=== PATIENT | female | born 1990 | race Caucasian/White ===

== ENCOUNTER 2017-04-09 14:31 | Emergency (ER) | payer MEDICAID ==
[~2017-04-09] VITALS: Ht 160 cm; Wt 65.8 kg
[2017-04-10] MEDS ORDERED: OMEPRAZOLE20 MG PO (23:31)
== END 2017-04-09 17:17 | disposition home or self-care (01) ==
LOC: ED 14:31
DX: T42.4X1A Poisoning by benzodiazepines, accidental (unintentional), initial encounter (principal)
CPT/HCPCS: 80053; 80176; 81001; 84443; 85025; 99283; G0480

== ENCOUNTER 2017-04-10 17:12 | Emergency (ER) | payer MEDICAID ==
[~2017-04-10] VITALS: Ht 160 cm; Wt 65.8 kg
[2017-04-10] MEDS ORDERED: OMEPRAZOLE20 MG PO (23:31)
== END 2017-04-11 05:42 | disposition home or self-care (01) ==
LOC: ED 17:12
DX: F10.239 Alcohol dependence with withdrawal, unspecified (principal); F17.200 Nicotine dependence, unspecified, uncomplicated; Y90.1 Blood alcohol level of 20-39 mg/100 ml
CPT/HCPCS: 80053; 81001; 83735; 84100; 84703; 85025; 96374; 96375; 99283; G0480; J2060; J2405; J3411; J7030